=== PATIENT | male | born 1995 | race Caucasian/White ===

== ENCOUNTER 2020-02-14 11:43 | Emergency (ER) | payer BC, SELFPAY ==
[2020-02-14 11:50] VITALS: BP 129/53; PULSE 65; RESP 16; TEMP 36.8; O2SAT 100
--- NOTE | 2020-02-14 12:50 | ED.SKABFB ---
HPI - Skin/Abscess/Foreign Bdy General Chief complaint: Skin/Abscess/Foreign Body Stated complaint: poison oak or sumac Time Seen by Provider: 02/14/20 12:35 Source: patient Mode of arrival: ambulatory Limitations: no limitations History of Present Illness HPI narrative: 24-year-old male who presents to [facility] care with 3-day history of red raised irregular pruritic rash to lower extremities, chest and back in scattered patches. Patient states he has a history of being allergic to poison kathi and poison sumac and states that he had been in the yard walking barefoot over 09 February. Patient states that he has not taken any pain medication or any medication for itching. MD complaint: rash Onset (ago): day(s) (3) Tetanus up to date: yes Location: LLE and RLE Severity: moderate Severity scale (1-10): 5 Quality: pruritic Pain Consistency: intermittent and colicky Relieving factors: none Context: other (barefoot in yard on the ) Associated symptoms: itching Treatments prior to arrival: none Related Data Allergies Allergy/AdvReac Type Severity Reaction Status Date / Time poison sumac extract Allergy Mild Rash Verified 02/14/20 12:00 poison oak extract Allergy Rash Verified 02/14/20 12:01 Review of Systems Review of Systems: Narrative: CONSTITUTIONAL: Denies fever, chills, or sweats. EYES: Denies visual changes, redness, or discharge. ENT: Denies rhinorrhea, congestion, sore throat, or otalgia. CARDIOVASCULAR: Denies chest pain, palpitations, or edema. RESPIRATORY: Denies cough or dyspnea. GASTROINTESTINAL: Denies abdominal pain, nausea, vomiting, or diarrhea. GENITOURINARY: Denies dysuria or hematuria. SKIN: positive for rash or itching to lower extremities,chest and back MUSCULOSKELETAL: Denies back pain, joint pain, or myalgia. NEUROLOGIC: Denies headache, numbness, or weakness. PSYCHIATRIC: Denies anxiety or depression. All systems reviewed & are unremarkable except as noted in HPI and below PMFSH Past Medical History Medical History (Updated 02/14/20 @ 17:47 by Cami Russell NP) Poison kathi dermatitis Social History Social History Smoking status: Never smoker Alcohol intake: never Substance use: never Living arrangements: with family Gender identity (if verbalized by the patient): Male Comments At time of signature, agree with nursing past medical, surgical, social history. There is no relevant family history pertinent to the presenting complaint Exam Narrative: Exam Narrative: GENERAL: Well-appearing, well-nourished, and in no acute distress. HEAD: Normocephalic, atraumatic. EYES: PERRLA and EOMI. ENT: Nares clear, no rhinorrhea or epistaxis. Mucous membranes moist. NECK: Supple. no lymphadenopathy CHEST: Clear to auscultation. No respiratory distress. HEART: Regular rate and rhythm. No murmur heard. Normal peripheral pulses. ABDOMEN: Soft, nontender, nondistended, normal active bowel sounds. EXTREMITIES: Normal range of motion. No edema. SKIN: Warm, dry,patchy raised vesicular rash to back, chest and lower extremities.. NEURO: No focal deficits. Alert and oriented x3. Course Vital Signs Vital signs: Vital Signs Temperature 36.8 C 02/14/20 11:50 Pulse Rate 65 02/14/20 11:50 Respiratory Rate 16 02/14/20 11:50 Blood Pressure 129/53 L 02/14/20 11:50 Pulse Oximetry 100 02/14/20 11:50 Temperature 36.8 C 02/14/20 11:50 Pulse Rate 65 02/14/20 11:50 Respiratory Rate 16 02/14/20 11:50 Blood Pressure 129/53 L 02/14/20 11:50 Pulse Oximetry 100 02/14/20 11:50 MDM - Skin/Abscess/Foreign Bdy Differential Diagnosis Differential diagnosis: Likely eczema, contact dermatitis and other (Poison kathi dermatitis) Medical Records Attestation: I reviewed the patient's medical records. Critical Care Time Critical Care Time Critical Care Time: No Discharge Plan Discharge Clinical Impression: Contact dermatitis Qualifi
== END 2020-02-14 13:07 | disposition home or self-care (01) ==
PROVIDERS: Emergency Provider Registered Nurse
DX: L23.7 Allergic contact dermatitis due to plants, except food (principal)
CPT/HCPCS: 99213; G0463

== ENCOUNTER 2020-12-09 13:19 | Emergency (ER) | payer BC, SELFPAY ==
[2020-12-09 13:20] VITALS: BP 137/62; PULSE 72; RESP 16; TEMP 36.8; O2SAT 99
--- NOTE | 2020-12-09 13:25 | ED.SKABFB ---
HPI - Skin/Abscess/Foreign Bdy General Chief complaint: Skin/Abscess/Foreign Body Stated complaint: rash Time Seen by Provider: 12/09/20 13:26 Source: patient and RN notes reviewed History of Present Illness HPI narrative: Patient is a 25-year-old male who presents the urgent care with complaints of a red rash to bilateral lower legs and an area to the left thigh. Patient states that he noticed the areas to bilateral arms on Wednesday after mushroom hunting. States that those areas have since cleared without any use of [id number] medications or creams. Patient states that he woke up yesterday with the areas to the ankles. Patient has not used anything [id number]. Denies of any known soaps, detergents, creams or lotions. Denies of any pain or fevers. No other acute complaints. No acute distress noted. Patient aware of the plan of care. Some parts of this dictation were generated by voice recognition software and may contain typographical and/or grammatical inaccuracies. Related Data Allergies Allergy/AdvReac Type Severity Reaction Status Date / Time poison sumac extract Allergy Mild Rash Verified 12/09/20 13:33 poison oak extract Allergy Rash Verified 12/09/20 13:33 Review of Systems Review of Systems: Narrative: CONSTITUTIONAL: Denies fever, chills, or sweats. EYES: Denies visual changes, redness, or discharge. ENT: Denies rhinorrhea, congestion, sore throat, or otalgia. CARDIOVASCULAR: Denies chest pain, palpitations, or edema. RESPIRATORY: Denies cough or dyspnea. GASTROINTESTINAL: Denies abdominal pain, nausea, vomiting, or diarrhea. GENITOURINARY: Denies dysuria or hematuria. SKIN: Itchy red rash bilateral ankles and left thigh MUSCULOSKELETAL: Denies back pain, joint pain, or myalgia. NEUROLOGIC: Denies headache, numbness, or weakness. All other systems reviewed are negative, except as documented in HPI. [facility] Past Medical History Medical History (Updated 12/09/20 @ 13:36 by JODI Pretty) Poison kathi dermatitis Social History Social History Smoking status: Never smoker Alcohol intake: never Substance use: never Gender identity (if verbalized by the patient): Male Comments At the time of my signature, I reviewed and agree with the nursing past medical, surgical, social, and family history. There is no relevant family history pertinent to the patient complaint. Exam Narrative: Exam Narrative: GENERAL: This is a well-nourished, well-developed patient, in no apparent distress. HEAD: normocephalic, atraumatic. EYES: PERRL. Sclera clear/white. Vision is grossly intact. EARS: External ears normal NOSE: External nose normal with no obvious nasal discharge, nares without redness, no rhinorrhea. THROAT: Mucous membranes moist SKIN: Urticaria noted to bilateral ankles and localized area to the medial left thigh. Mild erythema surrounding. Warm, intact with no suspicious lesions or rash, good texture and turgor. NEURO: awake, alert, and oriented to person, place and time. There were no obvious focal neurologic abnormalities. EXTREMITIES: No clubbing, cyanosis, or edema. Course Vital Signs Vital signs: Vital Signs Temperature 98.2 F 12/09/20 13:20 Pulse Rate 72 12/09/20 13:20 Respiratory Rate 16 12/09/20 13:20 Blood Pressure 137/62 12/09/20 13:20 Pulse Oximetry 99 12/09/20 13:20 Temperature 98.2 F 12/09/20 13:20 Pulse Rate 72 12/09/20 13:20 Respiratory Rate 16 12/09/20 13:20 Blood Pressure 137/62 12/09/20 13:20 Pulse Oximetry 99 12/09/20 13:20 Reviewed MDM - Skin/Abscess/Foreign Bdy MDM Narrative Medical decision making narrative: Advised the patient to use prescription cream to the affected areas as directed. Make sure the clothing you wore while mushroom hunting is washed prior to rewearing. Use an [id number] antihistamine such as Benadryl/Zyrtec or Claritin for itch relief. If you de
== END 2020-12-09 13:39 | disposition home or self-care (01) ==
PROVIDERS: Emergency Provider Nurse Practitioner Family; PCP Internal Medicine
DX: L50.9 Urticaria, unspecified (principal)
CPT/HCPCS: 99213; G0463

== ENCOUNTER 2021-10-29 10:57 | Emergency (ER) | payer BC, SELFPAY ==
--- NOTE | 2021-10-29 11:02 | ED.URI ---
HPI - URI/Sore Throat General Chief Complaint: Upper Respiratory Infection Stated Complaint: Congestion/Sore Throat/Cough Time Seen by Provider: 10/29/21 11:02 Source: patient and RN notes reviewed History of Present Illness HPI Narrative: Patient is a 25-year-old male who presents the urgent care with complaints of sore throat, congestion and cough for 2 days. Patient states his girlfriend was positive for strep yesterday. Denies of any fever, nausea, vomiting. Patient has been taking Claritin and using cough drops for his symptoms. No other acute complaints. No acute distress noted. Patient aware of the plan of care. Some parts of this dictation were generated by voice recognition software and may contain typographical and/or grammatical inaccuracies. Related Data Allergies Allergy/AdvReac Type Severity Reaction Status Date / Time poison sumac extract Allergy Mild Rash Verified 10/29/21 11:13 poison oak extract Allergy Rash Verified 10/29/21 11:13 Review of Systems Review of Systems: CONSTITUTIONAL: Denies fever, chills, or sweats. EYES: Denies visual changes, redness, or discharge. ENT: Reports of congestion and sore throat CARDIOVASCULAR: Denies chest pain, palpitations, or edema. RESPIRATORY: Reports of cough without dyspnea GASTROINTESTINAL: Denies abdominal pain, nausea, vomiting, or diarrhea. GENITOURINARY: Denies dysuria or hematuria. SKIN: Denies rash or itching. MUSCULOSKELETAL: Denies back pain, joint pain, or myalgia. NEUROLOGIC: Denies headache, numbness, or weakness. All other systems reviewed are negative, except as documented in HPI. [facility] Past Medical History Medical History (Updated 10/29/21 @ 11:32 by JODI Pretty) Poison kathi dermatitis Social History Social History Smoking status: Never smoker Alcohol intake: never Substance use: never Gender identity (if verbalized by the patient): Male Comments At the time of my signature, I reviewed and agree with the nursing past medical, surgical, social, and family history. There is no relevant family history pertinent to the patient complaint. Exam Narrative: GENERAL: This is a well-nourished, well-developed patient, in no apparent distress. HEAD: normocephalic, atraumatic. EYES: PERRL. Sclera clear/white. Vision is grossly intact. EARS: External ears normal, auditory canals clear and without drainage, TMs normal without perforation. Hearing grossly intact. NOSE: External nose normal with no obvious nasal discharge, nares without redness, clear rhinorrhea. THROAT: Mucous membranes moist, mild to moderate erythema noted to posterior oropharynx with exudate to the left. Moderate postnasal drainage NECK: Neck supple, non-tender without lymphadenopathy CARDIOVASCULAR: Regular rate and rhythm without murmurs, gallops, or rubs. RESPIRATORY: Clear to auscultation. Breath sounds equal bilaterally. No wheezes, rales, or rhonchi. SKIN: warm, intact with no suspicious lesions or rash, good texture and turgor. NEURO: awake, alert, and oriented to person, place and time. There were no obvious focal neurologic abnormalities. EXTREMITIES: No clubbing, cyanosis, or edema. Course Course Level of Care: Express Care Visit Vital Signs Vital signs: Vital Signs Temperature 98.2 F 10/29/21 11:04 Pulse Rate 60 10/29/21 11:04 Respiratory Rate 16 10/29/21 11:04 Blood Pressure 115/62 10/29/21 11:04 Pulse Oximetry 99 10/29/21 11:04 Temperature 98.2 F 10/29/21 11:04 Pulse Rate 60 10/29/21 11:04 Respiratory Rate 16 10/29/21 11:04 Blood Pressure 115/62 10/29/21 11:04 Pulse Oximetry 99 10/29/21 11:04 Reviewed MDM - URI/Sore Throat MDM Narrative Medical decision making narrative: Reviewed lab results with the patient. He is aware that strep swab was negative. We will culture the swab however call will not be made considering you will receive treatment. Would recomm
[2021-10-29 11:04] VITALS: BP 115/62; PULSE 60; RESP 16; TEMP 36.8; O2SAT 99
== END 2021-10-29 11:35 | disposition home or self-care (01) ==
PROVIDERS: Emergency Provider Nurse Practitioner Family; PCP Pediatrics
DX: J02.9 Acute pharyngitis, unspecified (principal); Z20.818 Contact with and (suspected) exposure to other bacterial communicable diseases
CPT/HCPCS: 87081; 87880; 99213; G0463

== ENCOUNTER 2024-10-12 16:01 | Emergency (ER) | payer BC, SELFPAY ==
[2024-10-12 16:21] VITALS: BP 141/74; PULSE 71; RESP 16; O2SAT 100
--- NOTE | 2024-10-12 16:38 | ED.SKABFB ---
HPI - Skin/Abscess/Foreign Bdy General Chief complaint: Skin/Abscess/Foreign Body Stated complaint: Rash Source: patient Mode of arrival: ambulatory Limitations: no limitations History of Present Illness HPI narrative: 28-year-old male presented for complaint of a red itchy rash to the left forearm and right abdomen for over 1 month. Patient has been treated with ketoconazole and terbinafine for ringworm as prescribed from a virtual visit; however pt says symptoms are worsening. Endorses draining clear fluid from the rash. Denies any other location of lesions. Denies lip, tongue, or throat swelling, shortness of breath or wheezing. Denies changes to soap, detergent, lotion, or any other exposures. No one else in the house or any contacts with similar symptoms. Related Data Home Medications ?Medication ?Instructions ?Recorded ?Confirmed ?Last Taken ?Type ketoconazole 2 % topical cream applic topical 10/12/24 Unknown History terbinafine HCl 250 mg tablet mg 10/12/24 Unknown History Allergies Allergy/AdvReac Type Severity Reaction Status Date / Time poison sumac extract Allergy Mild Rash Verified 10/12/24 16:19 poison oak extract Allergy Rash Verified 10/12/24 16:19 Review of Systems Review of Systems: CONSTITUTIONAL: Denies body aches, fever, chills, or sweats. EYES: Denies visual changes, redness, or discharge. ENT: Denies rhinorrhea, congestion CARDIOVASCULAR: Denies chest pain, palpitations, or edema. RESPIRATORY: Denies cough or dyspnea. GASTROINTESTINAL: Denies abdominal pain, nausea, vomiting, or diarrhea. SKIN: per HPI MUSCULOSKELETAL: Denies back pain, joint pain, or myalgia. NEUROLOGIC: Denies headache, numbness, tingling, or weakness. [facility] Past Medical History Medical History (Updated 10/12/24 @ 16:40 by Paige Rodriguez APRN) Poison kathi dermatitis Social History Social History Smoking status: Never smoker Alcohol intake: never Substance use: never Living arrangements: with family Gender identity (if verbalized by the patient): Male Comments At time of signature, I have reviewed and agree with nursing past medical, surgical, social and family history unless otherwise noted. Please see nursing chart for further information. There is no relevant family history pertinent to the presenting complaint Exam Narrative: GENERAL: Well-appearing ENT: Mucous membranes moist. Oropharynx without edema, erythema or lesions. CHEST: Clear to auscultation. HEART: Regular rate and rhythm. SKIN: Warm, dry. Left forearm with patches of erythematous vesicles, draining clear fluid. Approx 3cm diamter area to the forearm. Approx 0.5cm areas scattered to LESIA. Right abdomen erythematous dried patch with few vesicles, nontender. Right lower ribs with flat erythematous patches. No vesicles. NEURO: Alert and oriented x3. Course Course Emergency Course: Patient is aware of diagnosis, understands and agrees to treatment plan. Anticipatory guidance given. Patient agrees to follow-up as directed and is aware of reasons to seek care at the emergency department. Portions of this record may have been created with voice recognition software Level of Care: Express Care Visit Vital Signs Vital signs: Vital Signs Pulse Rate 71 10/12/24 16:21 Respiratory Rate 16 10/12/24 16:21 Blood Pressure 141/74 H 10/12/24 16:21 Pulse Oximetry 100 10/12/24 16:21 Oxygen Delivery Room Air 10/12/24 16:21 Pulse Rate 71 10/12/24 16:21 Respiratory Rate 16 10/12/24 16:21 Blood Pressure 141/74 H 10/12/24 16:21 Pulse Oximetry 100 10/12/24 16:21 Oxygen Delivery Room Air 10/12/24 16:21 Reviewed MDM - Skin/Abscess/Foreign Bdy MDM Narrative Medical decision making narrative: Discussed physical exam findings most c/w eczema. Advised supportive measures and signs/symptoms to go to the ER. Pt is appropriate for outpt treatment and f/u. Instructed patient to go to nearest ER immediately for any worsening symptoms including but not limited to: fever, spreading rash, pain, sore throat, headache, dizziness, chest pain, trouble breathing, or any symptoms concerning to the patient. Differential Diagnosis Differential diagnosis: Likely abscess of skin or subcutaneous tissue, viral exanthem, dermatophytosis, urticaria, herpes zoster, cellulitis, eczema, insect bites, impetigo and contact dermatitis Discharge Plan Discharge Clinical Impression: Dermatitis Patient Disposition: Home, Self-Care Condition: Stable Instructions: Antibiotic Form, Dermatitis (ED) Additional Instructions: Take steroids and Pepcid as directed. For itching: Benadryl or Zyrtec according to package directions. Cool compresses to the sites of itching, avoid hot water. Avoid scratching to reduce the risk of infection Follow up with your primary care provider as needed in 1 week Go to the ER for worsening symptoms or concerns (lip, tongue, throat swelling/itching, trouble breathing etc) Dermatologists: [facility] [address] [phone] [facility] [address] [phone] [facility] [address] [place] [phone] [facility] [address] [phone] Patient Language: Portuguese Prescriptions: New famotidine [Pepcid] 40 mg tablet 40 mg PO DAILY Qty: 10 0RF prednisone 20 mg tablet 20 mg PO DAILY Qty: 18 0RF Rx Instructions: take 3 tablets daily for 3 days, then 2 tablets daily for 3 days then 1 tablet daily for 3 days No Action terbinafine HCl 250 mg tablet ketoconazole 2 % cream TOPICAL Follow-up/Referrals: PHYSICIAN,[employer] [Primary Care Provider] -
--- OUTSIDE RECORDS SUMMARY | 2024-10-12 16:53 | XMS_ITS | Clinical Summary ---
Author Organization [facility] Address [address] [place] [address] Care Team Providers Care Armed Custom Protection Officer Name Role Phone Masood Alegria Primary Care Provider Allergies No known active allergies Medications modafiniL (PROVIGIL) 100 mg tablet Take 1 tablet (100 mg total) by mouth daily In the morning 30 tablet 2 Active Additional Information Patient not taking.Reported on 07/28/2024 ketoconazole (NIZORAL) 2 % creamIndication s:Tinea corporis Apply topically daily 15 g 4 Active Active Problems Problem Noted Date Diagnosed Date PE (physical exam), annual 02/28/2020 Assessment & Plan (02/28/2020 4:54 PM CDT): Healthy male and little bit of a worrier but good shape urine dip nl and cont with activyt with rectal fissure keeping stools soft a good idea and the acneform Rash from steroid idnia coming in summer and hear. Scrub the area with a plasic scub mat gently to exfoliate and should help. Rotator cuff strain, left, initial encounter Resolved Problems Problem Noted Date Diagnosed Date Resolved Date BMI 24.0-24.9, adult 02/28/2020 022 Assessment & Plan (02/28/2020 4:52 PM CDT): wr good and no chags Encounters Date Type Department Care Team Description 07/28/2024 11:33 AM [employer] - 07/28/2024 11:59 PM [employer] Hospital Encounter [facility] [address] [place] [address] Routine screening for STI (sexually transmitted infection) Discharge Disposition: Discharge to home or self care 07/28/2024 11:00 AM [employer] Office Visit [facility] [place] [address] [place] [address] Maryuri Franco, LENKA Routine screening for STI (sexually transmitted infection) (Primary Dx); Tinea corporis from Last 3 Months Immunizations Immunization Administration Dates Next Due DTaP 11/10/2002, 9,05/14/1998,03/12,01/07/1998 HPV, Quadrivalent 02/13/2014,07/05/2013,05/23/20 13 Hep A, Adult 03/07/2018,03/04/2017 Hep B, Unspecified 08/12/1998,1997, 998 HiB 02/12/1999, 8,03/12/1998,01/07 IPV 11/10/2002,05/14/1999 Influenza, Quadrivalent, Spl it, Intramuscular 07/30/2014 Influenza, Quadrivalent, Spl it, Preservative Free, Intramuscular 05/05/2022 Influenza, Unspecified 05/01/2021(Deferr ed: Patient Refused),05/09/2020(Deferred: Patient Refused),02/28/2020(Deferred: Patient Refused) MMR 11/10/2002,02/12/1999 Meningococcal ACWY, Unspecified 03/04/2010 Meningococcal Conjugate (Menveo) 02/28/2015 OPV 03/12/1998,01/07/1998 Td, adsorbed 05/01/2021 Tdap 02/20/2009 Varicella 12/10/2006,11/10/2002 Surgical History Surgery Date Site/Laterality Comments NO PAST SURGERIES Medical History Medical History Date Comments Known health problems: none Family History Medical History Relation Name Comments No Known Problems Father No Known Problems Mother Cancer Neg Hx Relation Name Status Comments Father Mother Social History Tobacco Use Types Packs/Day Years Used Date Smoking Tobacco: Every Day Vaping Smokeless Tobacco: Never Tobacco Cessation:Ready to Q uit: Not Asked; Counseling Given: Not Answered Alcohol Use Standard Drinks/Week Comments No 0 (1 standard drink = 0.6 oz pur e alcohol) PHQ-2 Answer Date Recorded PHQ-2 Total Score (If total score is 3 or more points, staff should administer the PHQ-9) 0 05/05/2022 Sex and Gender Information Value Date Recorded Sex Assigned at Not on file Legal Sex Male 11:29 PM [employer] Gender Identity Not on file Sexual Orientation Not on file Obstetrics History Last Filed Vital Signs Vital Sign Reading Time Taken Comments Blood Pressure 128/84 07/28/2024 11:17 AM [employer] Pulse 73 07/28/2024 11:17 AM [employer] Temperature 36.7 C (98.1 F) 07/28/2024 11:17 AM [employer] Respiratory Rate 18 07/28/2024 11:17 AM [employer] Oxygen Saturation 98% 07/28/2024 11:17 AM [employer] Inhaled Oxygen Concentration - - Weight 74.7 kg (164 lb 9.6 oz) 07/28/2024 11:17 AM [employer] Height 170.2 cm (5' 7 ) 07/28/2024 11:17 AM [employer] Body Mass Index 25.78 07/28/2024 11:17 AM [employer] Plan of Treatment Health Maintenance Due Date Last Done Comments Hepatitis C Screening 1997 Pneumococcal vaccine <65 (1 of 2 - PCV) 2016 Depression Screening 05/05/2023 05/05/2022, 05/01/2021, 02/28/2020 Regular Well Visit/Exam 18-64 05/05/2023, 05/01/2021, 02/28/2020 Covid-19 Vaccine (2 - 2023-2 5 season) 2024 07/19/2021 Influenza Vaccine (#1) 2024 05/05/2022, 2013 DTaP/Tdap/Td Vaccine (8 - Td or Tdap) 05/01/2031 05/01/2021, 02/20/2009, 11/10/2002, Additional history exists Hepatitis B Screening Completed 08/12/1998 , 1997, 1997 Varicella Vaccines Completed 12/10/2006, 11/10/2002 HPV Vaccines Completed 02/13/2014, 06/10, 05/23/2013 Procedures Procedure Name Priority Date/Time Associated Diagnosis Comments POCT URINALYSIS DIPSTICK Routine 07/28/2024 11:37 AM [employer] Routine screening for STI (sexually transmitted infection) N. GONORRHOEAE/C. TRACHOMATIS AMPLIFICATION Routine 07/28/2024 11:33 AM [employer] Routine screening for STI (sexually transmitted infection) TRICHOMONAS VAGINALIS PCR Routine 07/28/2024 11:33 AM [employer] Routine screening for STI (sexually transmitted infection) from Last 3 Months Results * POCT urinalysis dipstick (07/28/2024 11:37 AM [employer]) Color, Urine, POC [place] Clarity, ur, POC Clear Clear Glucose, ur, POC Negative Negative MG/DL Bilirubin, ur, POC Negative Negative, Small, Moderate, Large Ketones, ur, POC Negative Negative Specific [place], POC Comment:>=1.030 Blood, ur, POC Negative Negative pH, ur, POC 6.0 5.0 - 8.0 Protein, ur, POC Negative Negative Urobilinogen, urine, POC 0.2 0.2 - 1.0 mg/dL Nitrite, ur, POC Negative Negative Leukocytes, ur, POC Negative Negative Lot Number [id number] Urine 07/28/2024 11:3 7 AM [employer] Maruyri Franco NP POINT OF CARE TEST ORDERABLES Fi nal Result * N. gonorrhoeae/C. trachomatis Amplification Urine (07/28/2024 11:33 AM [employer]) C. trachomatis Not Detected [facility] Comment:Testing performed by : [facility], [address] [place]., [address] N. gonorrhoeae Not Detected JEOV[facility] PEDROZA Comment: Interpretive Data This assay detects Chlamydia trachomatis and Neisseria gonorrhoeae by nucleic acid amplification testing (NAAT). This assay has been cleared by the [place] Food and Drug administration. The performance characteristics of this test have been verified by the [facility] Molecular Infectious Disease laboratory. The performance characteristics of this test have not been evaluated in individuals less than 14 years of age. Current Interpretive Data was last revised on 2023. Testing performed by: [facility], [address] [place] [address]., [id number] Urine (None) 07/28/2024 11:3 3 AM [employer] 07/29/2024 5:49 PM [employer] Maryuri Franco NP LAB MICROBIOLOGY - GENERAL ORDER VAMSHI Final Result JEOVANNY KASIA [id number] Department [place] [address] [facility] * Trichomonas vaginalis PCR Urine (07/28/2024 11:33 AM [employer]) Trichomonas DNA Not Detected [facility] Comment: Interpretive Data This assay detects Trichomonas vaginalis by nucleic acid amplification testing (NAAT). This assay has been cleared by the [place] Food and Drug administration. The performance characteristics of this test have been verified by the [facility] Molecular Infectious Disease laboratory. The performance of this test has not been evaluated in individuals less than 18 years of age. Current Interpretive Data was last revised on 2023. Testing performed by: [facility], [address] [place] [address]., [id number] Urine 07/28/2024 11:3 3 AM [employer] 07/29/2024 5:49 PM [employer] Maryuri Franco NP LAB MICROBIOLOGY - GENERAL [place] [address] [address] Department of [employer] [place] [address] [facility] from Last 3 Months Insurance [facility] AETNA SIGNATURE Care Teams Armed Custom Protection Officer Relationship Specialty Start Date End Date Masood Alegria PA [address] [place] [address] [place] [id number] PCP - General Internal Medicine 04/09/22
--- OUTSIDE RECORDS SUMMARY | 2024-10-12 16:53 | XMS_ITS | Referral Summary ---
Author Organization [facility] Address [address] [place] [address] Care Team Providers Care Clerk Analyst Name Role Phone Masood Alegria Primary Care Provider Encounters Date Type Department Care Team Description 07/28/2024 11:33 AM REGISTERED ACCOUNT ADMINISTRATOR - 07/28/2024 11:59 PM REGISTERED ACCOUNT ADMINISTRATOR [place] [address] Routine screening for STI (sexually transmitted infection) Discharge Disposition: Discharge to home or self care 07/28/2024 11:00 AM REGISTERED ACCOUNT ADMINISTRATOR Office Visit [facility] [place] [address] [place] [id number] Maryuri Franco, LENKA Routine screening for STI (sexually transmitted infection) (Primary Dx); Tinea corporis from Last 3 Months Allergies No known active allergies Medications modafiniL [...] idea and the acneform Rash from steroid [place] coming in summer and hear. Scrub the area with a plasic scub mat gently to exfoliate and should help. Rotator cuff strain, left, initial encounter Resolved Problems Problem Noted Date Diagnosed Date Resolved Date BMI 24.0-24.9, adult 02/28/2020 022 Assessment & Plan (02/28/2020 4:52 PM CDT): wr good and no chags Immunizations Immunization Administration Dates Next Due DTaP [...] Td, adsorbed 05/01/2021 Tdap 02/20/2009 Varicella 12/10/2006,11/10/2002 Social History Tobacco Use Types Packs/Day Years [...] on file Legal Sex Male 11:29 PM REGISTERED ACCOUNT ADMINISTRATOR Gender Identity Not on file Sexual Orientation Not on file Last Filed Vital Signs Vital Sign Reading Time Taken Comments Blood Pressure 128/84 07/28/2024 11:17 AM REGISTERED ACCOUNT ADMINISTRATOR Pulse 73 07/28/2024 11:17 AM REGISTERED ACCOUNT ADMINISTRATOR Temperature 36.7 C (98.1 F) 07/28/2024 11:17 AM REGISTERED ACCOUNT ADMINISTRATOR Respiratory Rate 18 07/28/2024 11:17 AM REGISTERED ACCOUNT ADMINISTRATOR Oxygen Saturation 98% 07/28/2024 11:17 AM REGISTERED ACCOUNT ADMINISTRATOR Inhaled Oxygen Concentration - - Weight 74.7 kg (164 lb 9.6 oz) 07/28/2024 11:17 AM REGISTERED ACCOUNT ADMINISTRATOR Height 170.2 cm (5' 7 ) 07/28/2024 11:17 AM REGISTERED ACCOUNT ADMINISTRATOR Body Mass Index 25.78 07/28/2024 11:17 AM REGISTERED ACCOUNT ADMINISTRATOR Plan of Treatment Not on file Procedures Procedure Name Priority Date/Time Associated Diagnosis Comments POCT URINALYSIS DIPSTICK Routine 07/28/2024 11:37 AM REGISTERED ACCOUNT ADMINISTRATOR Routine screening for STI (sexually transmitted infection) N. GONORRHOEAE/C. TRACHOMATIS AMPLIFICATION Routine 07/28/2024 11:33 AM REGISTERED ACCOUNT ADMINISTRATOR Routine screening for STI (sexually transmitted infection) TRICHOMONAS VAGINALIS PCR Routine 07/28/2024 11:33 AM REGISTERED ACCOUNT ADMINISTRATOR Routine screening for STI (sexually transmitted infection) from Last 3 Months Results * POCT urinalysis dipstick (07/28/2024 11:37 AM REGISTERED ACCOUNT ADMINISTRATOR) Color, Urine, POC [place] Clarity, ur, POC Clear Clear Glucose, ur, POC Negative Negative MG/DL Bilirubin, ur, POC Negative Negative, Small, Moderate, Large Ketones, ur, POC Negative Negative Specific [place], POC Comment:>=1.030 Blood, ur, POC Negative Negative pH, ur, POC 6.0 5.0 - 8.0 Protein, ur, POC Negative Negative Urobilinogen, urine, POC 0.2 0.2 - 1.0 mg/dL Nitrite, ur, POC Negative Negative Leukocytes, ur, POC Negative Negative Lot Number [id number] Urine 07/28/2024 11:3 7 AM REGISTERED ACCOUNT ADMINISTRATOR Maryuri Franco NP POINT OF CARE TEST ORDERABLES Fi nal Result * N. gonorrhoeae/C. trachomatis Amplification Urine (07/28/2024 11:33 AM REGISTERED ACCOUNT ADMINISTRATOR) C. trachomatis Not Detected [facility] Comment:Testing performed by : [facility], [address] [place]., [address] N. gonorrhoeae Not Detected JEOVANNY PEDROZA Comment: Interpretive Data This assay detects Chlamydia trachomatis and Neisseria gonorrhoeae by nucleic acid amplification testing (NAAT). This assay has been cleared by the [place] Food and Drug administration. The performance characteristics of this test have been verified by the [facility] Molecular Infectious Disease laboratory. The performance characteristics of this test have not been evaluated in individuals less than 14 years of age. Current Interpretive Data was last revised on 2023. Testing performed by: [facility], [address] [place]., [address] Urine (None) 07/28/2024 11:3 3 AM REGISTERED ACCOUNT ADMINISTRATOR 07/29/2024 5:49 PM REGISTERED ACCOUNT ADMINISTRATOR Maryuri Franco NP LAB MICROBIOLOGY - GENERAL ORDER VAMSHI Final Result JEOVANNY PEDROZA [address] Department [place] [address] [facility] * Trichomonas vaginalis PCR Urine (07/28/2024 11:33 AM REGISTERED ACCOUNT ADMINISTRATOR) Trichomonas DNA Not Detected [facility] Comment: Interpretive Data This assay detects Trichomonas vaginalis by nucleic acid amplification testing (NAAT). This assay has been cleared by the [place] Food and Drug administration. The performance characteristics of this test have been verified by the [facility] Molecular Infectious Disease laboratory. The performance of this test has not been evaluated in individuals less than 18 years of age. Current Interpretive Data was last revised on 2023. Testing performed by: [facility], [address] [place]., [address] Urine 07/28/2024 11:3 3 AM REGISTERED ACCOUNT ADMINISTRATOR 07/29/2024 5:49 PM REGISTERED ACCOUNT ADMINISTRATOR us Maryuri Franco NP LAB MICROBIOLOGY - GENERAL ORDER VAMSHI Final Result JEOVANNY PEDROZA [address] Department [place] [address] [facility] from Last 3 Months Insurance [facility] COMMERCIAL GENERIC [facility] AETNA SIGNATURE Care Teams Clerk Analyst Relationship Specialty Start Date End Date Masood Alegria PA [address] [place] [address] PCP - General Internal Medicine 04/09/22
--- OUTSIDE RECORDS SUMMARY | 2024-10-12 16:53 | XMS_ITS | Clinical Summary ---
Author Organization [facility] Address [address] [place] [phone] Phone Care Team Providers Care Route Sales Delivery Driver Name Role Phone Adan Carlisle MD Primary Care Provider Unavaila ble Allergies No known active allergies Medications No known medications Active Problems No known active problems Social History Tobacco Use Types Packs/Day Years Used Date Smoking Tobacco: Some Days Smokeless Tobacco: Never Alcohol Use Standard Drinks/Week Comments Yes 0 (1 standard drink = 0.6 oz pur e alcohol) Sex and Gender Information Value Date Recorded Sex Assigned at Not on file Legal Sex Male 12:10 PM TUBE MAKING MACHINE OPERATOR Gender Identity Not on file Sexual Orientation Not on file Last Filed Vital Signs Vital Sign Reading Time Taken Comments Blood Pressure 112/62 07/25/2020 12:21 PM TUBE MAKING MACHINE OPERATOR Pulse 62 07/25/2020 12:21 PM TUBE MAKING MACHINE OPERATOR Temperature 36.8 C (98.3 F) 07/25/2020 12:21 PM TUBE MAKING MACHINE OPERATOR Respiratory Rate - - Oxygen Saturation 98% 07/25/2020 12:21 PM TUBE MAKING MACHINE OPERATOR Inhaled Oxygen Concentration - - Weight 72.6 kg (160 lb) 07/25/2020 12:21 PM TUBE MAKING MACHINE OPERATOR Height 170.2 cm (5' 7 ) 07/25/2020 12:21 PM TUBE MAKING MACHINE OPERATOR Body Mass Index 25.06 07/25/2020 12:21 PM TUBE MAKING MACHINE OPERATOR Plan of Treatment Health Maintenance Due Date Last Done Comments Hepatitis C Virus (HCV) Screening 1997 Influenza Immunization (#1) 2024 07/30/2014 SARS-COV-2 Immunization ( season) 2024 07/19/2021 Respiratory Syncytial Virus (RSV) Immunization (Adult) (1 - 1-dose 75+ series) 2072 Hepatitis B Immunization Completed 999, 1997, 1997 DTaP/Tdap/Td Immunization Discontinued 2008, 11/10/2002, 05/14/1999, Additional history exists TdaP Immunization Completed 02/20/2009 Human Papillomavirus (HPV) Immunization Completed 02/13/2014, 07/05/2013, 05/23/2013 Meningococcal Immunization (ACWY) Completed 02/28/2015, 03/04/2010 Pneumococcal Immunization Combined Aged Out No longer eligible based on patient's age to complete this topic Rotavirus Immunization Aged Out No lo nger eligible based on patient's age to complete this topic Insurance [facility] Care Teams Route Sales Delivery Driver Relationship Specialty Start Date End Date Adan Carlisle MD [address] [facility] [address] [address] PCP - General Internal Medicine 07/25/20
== END 2024-10-12 16:45 | disposition home or self-care (01) ==
PROVIDERS: Emergency Provider Nurse Practitioner Family
DX: L30.9 Dermatitis, unspecified (principal)
CPT/HCPCS: 99213; G0463

== ENCOUNTER 2024-11-08 16:15 | Emergency (ER) | payer BC, SELFPAY ==
[2024-11-08 16:32] VITALS: BP 123/66; PULSE 80; RESP 16; TEMP 37.1; O2SAT 97
--- NOTE | 2024-11-08 16:40 | ED_ITS ---
HPI - Skin/Abscess/Foreign Bdy General Chief complaint: Skin/Abscess/Foreign Body Stated complaint: skin irritation Source: patient Mode of arrival: ambulatory Limitations: no limitations History of Present Illness HPI narrative: 29 y/o male presented for c/o eczema and acne. Says he as been dealing with eczema for over one year and wants it to be gone. Pt says he has been taking steroids and cream for eczema but stopped them and stopped antihistamine this week because he 'does not want to take pills.' Says he believes the eczema cream has caused acne to his arms shoulders and back. Endorses itching to the acne lesions. Says he is scheduled with pcp at the end of the month. Pt was seen in clinic 10/12 for rash on arms and abdomen, prescribed steroid and pepcid at that time. Per notes he had been previously prescribed ketoconazole and terbinafine. Related Data Home Medications ?Medication ?Instructions ?Recorded ?Confirmed ?Last Taken ?Type ketoconazole 2 % topical cream applic topical 10/12/24 Unknown History Allergies Allergy/AdvReac Type Severity Reaction Status Date / Time poison sumac extract Allergy Mild Rash Verified 11/08/24 16:37 poison oak extract Allergy Rash Verified 11/08/24 16:37 Review of Systems Review of Systems: CONSTITUTIONAL: Denies body aches, fever, chills, or sweats. EYES: Denies visual changes, redness, or discharge. ENT: Denies rhinorrhea, congestion CARDIOVASCULAR: Denies chest pain, palpitations, or edema. RESPIRATORY: Denies cough or dyspnea. GASTROINTESTINAL: Denies abdominal pain, nausea, vomiting, or diarrhea. SKIN: per HPI MUSCULOSKELETAL: Denies back pain, joint pain, or myalgia. NEUROLOGIC: Denies headache, numbness, tingling, or weakness. [facility] Past Medical History Medical History (Updated 11/08/24 @ 17:01 by Paige Rodriguez APRN) Poison kathi dermatitis Social History Social History Smoking status: Never smoker Alcohol intake: never Substance use: never Living arrangements: with family Gender identity (if verbalized by the patient): Male Comments At time of signature, I have reviewed and agree with nursing past medical, surgical, social and family history unless otherwise noted. Please see nursing chart for further information. There is no relevant family history pertinent to the presenting complaint Exam Narrative: GENERAL: Well-appearing EYES: conjunctivae clear, and EOMI. ENT: Mucous membranes moist. Oropharynx without edema, erythema or lesions. NECK: Supple. No lymphadenopathy CHEST: Clear to auscultation. HEART: Regular rate and rhythm. SKIN: Warm, dry. skin colored papules to distal ends of fingers, c/w dyshidrotic eczema. Scattered pustules to back, shoulders and arms. NEURO: Alert and oriented x3. Course Course Emergency Course: Patient is aware of diagnosis, understands and agrees to treatment plan. Anticipatory guidance given. Patient agrees to follow-up as directed and is aware of reasons to seek care at the emergency department. Portions of this record may have been created with voice recognition software Level of Care: Express Care Visit Vital Signs Vital signs: Vital Signs Temperature 98.7 F 11/08/24 16:32 Pulse Rate 80 11/08/24 16:32 Respiratory Rate 16 11/08/24 16:32 Blood Pressure 123/66 11/08/24 16:32 Pulse Oximetry 97 11/08/24 16:32 Oxygen Delivery Room Air 11/08/24 16:32 Temperature 98.7 F 11/08/24 16:32 Pulse Rate 80 11/08/24 16:32 Respiratory Rate 16 11/08/24 16:32 Blood Pressure 123/66 11/08/24 16:32 Pulse Oximetry 97 11/08/24 16:32 Oxygen Delivery Room Air 11/08/24 16:32 Reviewed MDM - Skin/Abscess/Foreign Bdy MDM Narrative Medical decision making narrative: Discussed physical exam findings consistent with dyshidrotic eczema and folliculitis. Patient states he does not want any creams or pills for eczema treatment but he 'wants it gone.' Advised follow-up with a ramp attendant for additional treatment. Offered antibiotic for possible improvement in the acne.. Advised supportive measures and signs/symptoms to go to the ER. Pt is appropriate for outpt treatment and f/u. Differential Diagnosis Differential diagnosis: Likely abscess of skin or subcutaneous tissue, dermatophytosis, urticaria, herpes zoster, allergic reaction to drug, cellulitis, eczema, insect bites, impetigo and contact dermatitis Discharge Plan Discharge Clinical Impression: Folliculitis, Dyshidrotic eczema Patient Disposition: Home, Self-Care Condition: Stable Instructions: Antibiotic Form, Folliculitis (ED), Dyshidrotic Eczema (ED) Additional Instructions: Wash with gentle soap and water only. Allow skin to fully dry. Avoid scratching when possible to prevent worsening of the condition and disruption of the skin that could lead to bacterial infection Avoid irritants (scented products). Apply lotion such as aquaphor after handwashing. Take antibiotic as directed for acne/folliculitis. This antibiotic can be harsh on the stomach (nausea, vomiting, diarrhea) Recommend taking probiotic such as lactobacillus or align, Activia yogurt. Follow up with your primary care provider as needed in 1 week Go to the ER for worsening symptoms or concerns Dermatologists: [facility] [address] [phone] [facility] [address] [phone] [facility] [address] [phone] [facility] [address] [phone] Patient Language: Citizen Of [place] Prescriptions: New clindamycin HCl [Cleocin HCl] 300 mg capsule 300 mg PO Q8H 7 Days Qty: 21 0RF No Action ketoconazole 2 % cream TOPICAL famotidine [Pepcid] 40 mg tablet 40 mg PO DAILY Qty: 10 0RF Follow-up/Referrals: PHYSICIAN,MILK ROUTE DELIVERER [Primary Care Provider] - Time of Disposition: 17:02
--- OUTSIDE RECORDS SUMMARY | 2024-11-08 16:46 | XMS_ITS | Clinical Summary ---
Author Organization [facility] Address [address] [place] [phone] Phone Care Team Providers Care Hot Worker Name Role Phone Adan Carlisle MD Primary [...] on file Legal Sex Male 12:10 PM LANGUAGES AND LITERATURE INSTRUCTOR Gender Identity Not on file Sexual Orientation Not on file Last Filed Vital Signs Vital Sign Reading Time Taken Comments Blood Pressure 112/62 07/25/2020 12:21 PM LANGUAGES AND LITERATURE INSTRUCTOR Pulse 62 07/25/2020 12:21 PM LANGUAGES AND LITERATURE INSTRUCTOR Temperature 36.8 C (98.3 F) 07/25/2020 12:21 PM LANGUAGES AND LITERATURE INSTRUCTOR Respiratory Rate - - Oxygen Saturation 98% 07/25/2020 12:21 PM LANGUAGES AND LITERATURE INSTRUCTOR Inhaled Oxygen Concentration - - Weight 72.6 kg (160 lb) 07/25/2020 12:21 PM LANGUAGES AND LITERATURE INSTRUCTOR Height 170.2 cm (5' 7 ) 07/25/2020 12:21 PM LANGUAGES AND LITERATURE INSTRUCTOR Body Mass Index 25.06 07/25/2020 12:21 PM LANGUAGES AND LITERATURE INSTRUCTOR Plan of Treatment Health Maintenance Due Date [...] patient's age to complete this topic Insurance [facility] Care Teams Hot Worker Relationship Specialty Start Date End Date Adan Carlisle MD 2 [facility] [address] [address] PCP - General Internal Medicine 07/25/20
--- OUTSIDE RECORDS SUMMARY | 2024-11-08 16:46 | XMS_ITS | Referral Summary ---
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 Gender Identity Not on file Sexual Orientation Not on file Last Filed Vital Signs Vital Sign Reading Time Taken Comments Blood Pressure 128/84 07/28/2024 11:17 AM ONLINE MARKETING MANAGER Pulse 73 07/28/2024 11:17 AM ONLINE MARKETING MANAGER Temperature 36.7 C (98.1 F) 07/28/2024 11:17 AM ONLINE MARKETING MANAGER Respiratory Rate 18 07/28/2024 11:17 AM ONLINE MARKETING MANAGER Oxygen Saturation 98% 07/28/2024 11:17 AM ONLINE MARKETING MANAGER Inhaled Oxygen Concentration - - Weight 74.7 kg (164 lb 9.6 oz) 07/28/2024 11:17 AM ONLINE MARKETING MANAGER Height 170.2 cm (5' 7 ) 07/28/2024 11:17 AM ONLINE MARKETING MANAGER Body Mass Index 25.78 07/28/2024 11:17 AM ONLINE MARKETING MANAGER Plan of Treatment Not on file Insurance [facility] AETNA SIGNATURE Care Teams Carpet Sewer Relationship Specialty Start Date End Date Andrei South MD [address] [place] [address] PCP - General Family Medicine 10/25/24
--- OUTSIDE RECORDS SUMMARY | 2024-11-08 16:46 | XMS_ITS | Clinical Summary ---
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 Gender Identity Not on file Sexual Orientation Not on file Obstetrics History Last Filed Vital Signs Vital Sign Reading Time Taken Comments Blood Pressure 128/84 07/28/2024 11:17 AM SENIOR CORE JAVA DEVELOPER Pulse 73 07/28/2024 11:17 AM SENIOR CORE JAVA DEVELOPER Temperature 36.7 C (98.1 F) 07/28/2024 11:17 AM SENIOR CORE JAVA DEVELOPER Respiratory Rate 18 07/28/2024 11:17 AM SENIOR CORE JAVA DEVELOPER Oxygen Saturation 98% 07/28/2024 11:17 AM SENIOR CORE JAVA DEVELOPER Inhaled Oxygen Concentration - - Weight 74.7 kg (164 lb 9.6 oz) 07/28/2024 11:17 AM SENIOR CORE JAVA DEVELOPER Height 170.2 cm (5' 7 ) 07/28/2024 11:17 AM SENIOR CORE JAVA DEVELOPER Body Mass Index 25.78 07/28/2024 11:17 AM SENIOR CORE JAVA DEVELOPER Plan of Treatment Health Maintenance Due Date [...] 11/10/2002 HPV Vaccines Completed 02/13/2014, 06/10, 05/23/2013 Insurance [employer] [place] [facility] AETNA SIGNATURE Care Teams Cabinet Installer Relationship Specialty Start Date End Date Andrei South MD [address] [facility] [address] [place] [address] PCP - General Family Medicine 10/25/24
--- OUTSIDE RECORDS SUMMARY | 2024-11-08 16:46 | XMS_ITS | Data Portability ---
Author Organization [facility] Address [address] [place] [address] Care Team Providers Care Bottom Polisher Name Role Phone REJI WALLS Primary Care Provider Unavail able Assessment No assessment recorded. Plan of Treatment Reminders Order Date Submit Date Provider Last Modified By Organization Details Last Modified Time Details Appointments ANY 30 2024 02:00P M REJI CHEN MD Not available Not available Not available Lab None recorded. Referral None recorded. Procedures None recorded. Surgeries None recorded. Imaging None recorded. Medication Orders triamcino lone acetonide 0.1 % topical cream 2024 025 [facility][id number], [address], [place], [place], [id number], 10/25/2024 13:24:00 cetirizin e 10 mg tablet 2024 025 [facility] [place] [facility] #[id number], [address], [place], [place], [id number], 10/25/2024 13:24:01 Patient TargetsNo targets recorded. Patient Instructions Encounter Date Encounter Id Patient Instructions Last Modified By Organization Details Last Modified Time 10/25/2024 [id number] A healthy lifestyle: care instructions Not available 10/25/2024 13:23:50 Eczema: Care Instructions Not available 10/25/2024 13:23:50 Attending Physician Attestation I personally saw and examined the patient with the resident. I have reviewed the documentation and agree with the history, physical findings, work-up, and medical decision making as recorded. Destiny Mejias MD mmetias Not available 10/25/2024 13:25:09 Reason for Referral None Reported. Medical Equipment None Reported. Allergies No known drug allergies Medications Name Sig Start Date Stop Date Status Note LastModified by Organization Details LastModified Time cetirizine 10 mg tablet Take 1 tablet every day by oral route for 30 days. 2024 active Not Available Not Available Not Avai lable triamcinolone acetonide 0.1 % topical cream APPLY A THIN LAYER TO THE AFFECTED AREA(S) BY TOPICAL ROUTE 2 TIMES PER DAY 2024 active Not Available Not Available Not Avai lable Vitals Date Recorded Body height Body mass index (BMI) Body weight Body temperature Heart rate Respiratory rate Systolic blood pressure Diastolic blood pressure Provider Name and Address Organization Details Last Updated DateTime 170.18 cm 25.8 kg/m2 07620.9 5 g 98.3 [degF] 80 /min 18 /min 108 mm[Hg] 64 mm[Hg] Yanira Puente MA [facility] 11:42:40 Social History Question Answer Notes LastModified by Organizat ion Details LastModified Time Tobacco Smoking Status Current Every Day Smoker vape Yanira Puente MA null, [facility] 10/25/2024 11:43:32 What Was The Date Of Your Most Recent Tobacco Screening? 10/25/2024 Information not available 10/25/2024 Has Tobacco Cessation Counseling Been Provided? Yes Information not available 10/25/2024 On What Date Was Tobacco Cessation Counseling Provided? 10/25/2024 Information not available 10/25/2024 Sex: Male Functional Status None recorded. Mental Status None recorded. Family History Nothing Reported. Medical History Condition Response Coronary Artery Disease N Other N High Blood Pressure N Atrial Fibrillation N Kidney or Bladder Problems N Thyroid Problems N GI Problems N Depression N COPD N Blood Clots N Have you had a mammogram in the last yea r? N Skin Problems N Anemia N Heart Attack (MS) N Anxiety Disorder N Diabetes N Muscle, Joint, or Bone Problems N Seizures/Epilepsy N Have you had a colonoscopy in the last 1 0 years? N Acid Reflux (GERD) N Cancer N Stroke N Asthma N Allergies N Have you had a PSA blood test in the las t year? N High Cholesterol N Hepatitis N Liver Disease N Headaches N Heart Failure N Osteoporosis N Immunizations Vaccine Type Date Status Note Provider Nam e and Address Organization Details Recorded Time Influenza, split virus, quadrivalent, preservative 4 completed DESTINY MEJIAS MD Attn: Accounting,[address] [facility], [place], [place], [address] [place] [address], [place] [facility] 10/25/2024 13:02:47 Hib, unspecified formulation 8 completed DESTINY MEJIAS MD Attn: Accounting,[address] [facility], [place], [place], [address] [place] [address], [place] [facility] 10/25/2024 13:02:47 Hib, unspecified formulation 9 completed DESTINY MEJIAS MD Attn: Accounting,[address] [facility], [place], [address] [place] [address], [place] [facility] 10/25/2024 13:02:47 Hib, unspecified formulation 8 completed DESTINY MEJIAS MD Attn: Accounting,[address] [facility], [place], [address] [place] [address], [place] [facility] 10/25/2024 13:02:47 Hib, unspecified formulation 8 completed DESTINY MEJIAS MD Attn: Accounting,[address] [facility], [place], [address] [place] [address], [place] [facility] 10/25/2024 13:02:47 IPV 3 completed DESTINY MEJIAS MD Attn: Accounting,[address] [facility], [place], [address] [place] [address], [place] [facility] 10/25/2024 13:02:47 IPV 9 completed DESTINY MEJIAS MD Attn: Accounting,[address] [facility], [place], [address] [place] [address], [place] [facility] 10/25/2024 13:02:47 meningococcal ACWY, unspecified formulation 0 completed DESTINY MEJIAS MD Attn: Accounting,[address] [facility], [place], [address] [place] [address], [place] [facility] 10/25/2024 13:02:47 MMR 3 completed DESTINY MEJIAS MD Attn: Accounting,[address] [facility], [place], [address], [place] [facility] 10/25/2024 13:02:47 MMR 9 completed DESTINY MEJIAS MD Attn: Accounting,[address] [facility], [place], [address], [place] [facility] 10/25/2024 13:02:47 COVID-19 vaccine, vector-nr, rS-Ad26, PF, 0.5 mL 1 completed DESTINY MEJIAS MD Attn: Accounting,[address] [facility], [place], [address], [place] [facility] 10/25/2024 13:02:47 Tdap 9 completed DESTINY MEJIAS MD Attn: Accounting,[address] [facility], [place], [address] [place] [address], [place] [facility] 10/25/2024 13:02:47 varicella 3 completed DESTINY MEJIAS MD Attn: Accounting,[address] [facility], [place], [address], [place] [facility] 10/25/2024 13:02:47 varicella 7 completed DESTINY MEJIAS MD Attn: Accounting,[address] [facility], [place], [address], [place] [facility] 10/25/2024 13:02:47 Hep B, unspecified formulation 9 completed DESTINY MEJIAS MD Attn: Accounting,[address] [facility], [place], [address], [place] [facility] 10/25/2024 13:02:47 Hep B, unspecified formulation 8 completed DESTINY MEJIAS MD Attn: Accounting,[address] [facility], [place], [address], [place] [facility] 10/25/2024 13:02:47 Hep B, unspecified formulation 8 completed DESTINY MEJIAS MD Attn: Accounting,[address] [facility], [place], [address] [place] [address], [facility] 10/25/2024 13:02:47 OPV 8 completed DESTINY MEJIAS MD Attn: Accounting,[address] [facility], [place], [address] [place] [address], [facility] 10/25/2024 13:02:47 OPV 8 completed DESTINY MEJIAS MD Attn: Accounting,[address] [facility], [place], [address] [place] [address], [place] [facility] 10/25/2024 13:02:47 HPV, quadrivalent 4 completed DESTINY MEJIAS MD Attn: Accounting,[address] [facility], [place], [address] [place] [address], [facility] 10/25/2024 13:02:47 HPV, quadrivalent 3 completed DESTINY MEJIAS MD Attn: Accounting,[address] [facility], [place], [address] [place] [address], [facility] 10/25/2024 13:02:47 HPV, quadrivalent 3 completed DESTINY MEJIAS MD Attn: Accounting,[address] [facility], [place], [address] [place] [address], [facility] 10/25/2024 13:02:47 Td (adult), 2 Lf tetanus toxoid, preservative free, adsorbed 1 completed DESTINY MEJIAS MD Attn: Accounting,[address] [facility], [place], [address] [place] [address], [place] [facility] 10/25/2024 13:02:47 Hep A, adult 7 completed DESTINY MEJIAS MD Attn: Accounting,[address] [facility], [place], [address] [place] [address], [facility] 10/25/2024 13:02:47 Hep A, adult 8 completed DESTINY MEJIAS MD Attn: Accounting,[address] [facility], [place], [address], [facility] 10/25/2024 13:02:47 Meningococcal MCV4O 5 completed DESTINY MEJIAS MD Attn: Accounting,[address] [facility], [place], [address] [place] [address], [facility] 10/25/2024 13:02:47 DTaP 3 completed DESTINY MEJIAS MD Attn: Accounting,[address] [facility], [place], [address] [place] [address], [facility] 10/25/2024 13:02:47 DTaP 8 completed DESTINY MEJIAS MD Attn: Accounting,[address] [facility], [place], [address] [place] [address], [facility] 10/25/2024 13:02:47 DTaP 8 completed DESTINY MEJIAS MD Attn: Accounting,[address] [facility], [place], [address] [place] [address], [facility] 10/25/2024 13:02:47 DTaP 8 completed DESTINY MEJIAS MD Attn: Accounting,[address] [facility], [place], [address] [place] [address], [facility] 10/25/2024 13:02:47 DTaP 9 completed DESTINY MEJIAS MD Attn: Accounting,[address] [facility], [place], [address] [place] [address], [facility] 10/25/2024 13:02:47 Influenza, split virus, quadrivalent, PF 2 completed DESTINY MEJIAS MD Attn: Accounting,[address] [facility], [place], [address] [place] [address], [facility] 10/25/2024 13:02:47 Past Encounters Encounter ID Performer Location Encounter Start Date Encounter Closed Date Diagnosis/Indication Diagnosis SNOMED-CT Code Diagnosis ICD10 Code Diagnosis Note [id number] MD Evelio HOLDER 14 IM [address] [facility] [place] [address] 10/25/2024 11:24:49 11/06/2024 12:20:54 Overweight 827497809 E66.3 Will follow up in 6 weeks for adult exam. Atopic dermatitis 971749 01 L20.9 Patient present with dry itchy erythemato us papules on skin. Please see pictures.- he uses Keemotion soap bar.- Tried po prednisone and zyrtec with no benefit. OTC cortizone 10 with no relief.- DD: eczema vs psoriasis; as patient has had h/o psoriasis while in college- Will treat as atopic dermatitis for now with triamcinol one 0.1% topical cream and zyrtec 10 mg.- follow up in 6 weeks, Plan- if current dose does not work may go up to 0.5 % topical cream. Health Concerns Section Related Observation LastModified by Organization Detai ls LastModified Time None Recorded Concern Status LastModified by Organization Details LastModified Time None Recorded Advance Directives Directive None Recorded Payers Encounter Date Sequence Insurance Name Policy Number Policy Ramírez Covered Member ID Ramírez Member ID Guarantor Name 10/25/2024 1 [place] [id number] Landon N Foiles [id number] Landon Foiles Notes Date Note Type Note Provider Name and Address Organization Details Recorded Time 10/25/2024 text/html 28 y/o M with no PMH. Here today due to skin rash. Patient went to urgent care and did a virtual visit with doctor. Patient describes that hurt and is itchy, began 2 months ago. Patient report mild psoriasis diagnosed in [facility]. He is allergic to oak, has not been in the [place]. Virtual Doctor prescribed prednisone, zyrtec, can not remember other meds. OTC hydorcortisone 10 mg, aquaphor. Patient do not use any lotion/ body moisturizer. Also, reported LE did not take anything but the go away. Patient denied vision changes, difficulty hearing, sore throat or difficulty swallowing, neck swelling, chest pain, shortness of breath, abdominal pain, nausea, vomiting, diarrhea, constipation, urine issues, blood in urine or stools, and musculoskeletal joint pain. DESTINY MEJIAS MD Attn: Accounting,[address] [place], [address], [facility] 11/03/2024 23:20:43
== END 2024-11-08 17:08 | disposition home or self-care (01) ==
PROVIDERS: Emergency Provider Nurse Practitioner Family
DX: L73.9 Follicular disorder, unspecified (principal); L30.1 Dyshidrosis [pompholyx]
CPT/HCPCS: 99213; G0463